=== PATIENT | female | born 1990 | race Caucasian/White ===

== ENCOUNTER 2020-07-19 05:42 | Inpatient (IN) ==
[2020-07-19] MEDS ORDERED: ONDANSETRON 4 MG TAB.RAPDIS PO PRN (05:55)
[2020-07-19] MEDS ORDERED: RINGER'S SOLUTION,LACTATED 1,000 ML IV ONE (05:55)
[2020-07-19] MEDS ORDERED: OXYTOCIN/DEXTROSE 5%-WATER 30 UNITS/500 ML BAG IV ONE ×2 (05:55→12:04)
[2020-07-19] MEDS: DEXTROSE 5%-LACTATED RINGERS 1,000 ML IV PRN ×2 (06:52→11:12)
--- NOTE | 2020-07-19 09:11 | HP ---
Chief Complaint - Chief Complaint Date of Service: 07/19/20 Time of Service: 09:09 Chief Complaint: Induction of labor for post dates History of Present Illness: 30 yo at 40 3/7 weeks admitted for induction of labor due to post dates. 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 Rh positive Rubella immune GBS negative Medical History (Last Reviewed 07/19/20 @ 12:06 by Servando Gutierrez DO) Varicose veins of lower extremity Onset Date: Unknown left Body piercing Onset Date: Unknown Tattoos Onset Date: Unknown Left ulnar fracture Onset Date: ~2000 Surgical History: Surgical History (Last Reviewed 07/19/20 @ 12:06 by Servando Gutierrez DO) History of surgery on arm Onset Date: ~1991 left ulnar-x2 (ages 2 & 6) [place] teeth extracted Onset Date: ~2018 Family History: Family History (Last Reviewed 07/19/20 @ 12:06 by Servando Gutierrez DO) Mother Alive and well Father Colonic disease Social History: (Last Reviewed 07/19/20 @ 05:58 by Lisa Browning RN) Social History: adopted: No mcfp: No Marital status: household members: children, spouse number of children: 3 current occupational status: employed current occupation: [employer] current occupational exposures/hazards: No Highest education level completed: high school graduate Sexually Active: Yes Service: No Tobacco: Smoking Status: Never smoker Alcohol: alcohol intake: current alcohol intake frequency: holiday/special occasion details: No alcohol since + UPT Substance Use: substance use type: does not use Dietary Habits: caffeine: No Exercise: frequency: 3-4 times per week Abbie/Christianity: agree to transfusion: Yes Review Of Systems (GEN) - Review of Systems Generalized/Overall Review: Present: No Symptoms Reported EENTM: Present: No Symptoms Reported Respiratory: Present: No Symptoms Reported Cardiac: Present: No Symptoms Reported Abdominal: Present: No Symptoms Reported Genitourinary: Present: No Symptoms Reported Musculoskeletal: Present: No Symptoms Reported Neurological: Present: No Symptoms Reported Skin: Present: No Symptoms Reported Endocrine: Present: No Symptoms Reported Allergies/Adverse Reactions: Allergies Allergy/AdvReac Type Severity Reaction Status Date / Time No Known Allergies Allergy Verified 07/19/20 05:56 Home Medications: HOME MEDICATIONS prenat.vits,roland,cfw-fyxn-hosvd 1 tab PO DAILY 01/05/20 [Last Taken 07/18/20] docusate sodium 100 mg capsule 100 mg PO DAILY 03/14/20 [Last Taken Unknown] breast pump See Rx Instructions .ROUTE .DELBERT #1 ea 04/26/20 [Last Taken Unk nown] Exam - Exam Vital Signs: Vital Signs - Last Taken Temp 37.0 C 07/19/20 06:07 Pulse 87 07/19/20 06:07 Resp 18 07/19/20 06:07 BP 111/75 07/19/20 06:07 Pulse Ox 96 07/19/20 06:07 Constitutional: Present: Alert, Oriented x3, Cooperative, No distress ENT Exam: Present: hearing grossly normal Neck: Present: supple. Absent: thyromegaly Breasts: Present: Exam deferred Respiratory: Present: lungs clear, no respiratory distress Cardiovascular/Chest: Present: regular rate, rhythm, no edema Abdomen: Present: soft, nontender, other - gravid. Absent: rebound tenderness /Rectal: Present: Other - cervix 5/50/-3 Extremity: Present: no pedal edema, no calf tenderness Skin Exam: Present: normal color, warm/dry, no cyanosis Lymphatic: Present: no adenopathy Neurologic: Present: alert, normal mood/affect, oriented x 3 Appearance: Present: appropriate appearance, appropriate insight Eye contact: Present: cooperative, good eye contact Thoughts: Present: normal thought pattern, normal mood /affect Assessment/Plan - Assessment/Plan (1) Labor established Assessment: Admitted for induction of labor but found to already be in early labor. Augment with pitocin and epidural PRN. Problem: Acute (2) Anemia Problem: Acute Qualifiers: Anemia type: iron deficiency Iron deficiency anemia type: inadequate dietary iron intake Qualified Code(s): D50.8 - Other iron deficiency anemias (3) Psoriasis Problem: Inactive (4) HSV antigen DIF positive Problem: Chronic
--- NOTE | 2020-07-19 09:14 | PN ---
Progess Note - Interim Date: 07/19/20 Time: 07:45 Narrative: 07/19/20 09:11 Patient rating contractions as mild Vital signs stable. Pitocin at 4 mu/min. FHT: 140 baseline, reassuring contractions q 2-3 min Cervix: 5/60/-2, AROM-clear Impression: Intrauterine at 40 3/7 weeks induction of labor for postdates. Plan: Continue present plan
[2020-07-19] MEDS ORDERED: ONDANSETRON HCL/PF 2 MG/ML VIAL IV PRN (10:03)
[2020-07-19] MEDS ORDERED: NALOXONE HCL 1 MG/1 ML SYRG IV PRN (10:03)
[2020-07-19] MEDS ORDERED: BUPIVACAINE HCL/0.9 % NACL/PF 250 ML EP PRN (10:03)
[2020-07-19] MEDS ORDERED: BUPIVACAINE HCL/PF 30 ML VIAL EP SCH (10:15)
--- NOTE | 2020-07-19 10:28 | ANES ---
Anesthesia Pre Procedure Eval Vitals/Labs: Last Vital Signs Temp 37.0 C 07/19/20 06:07 Pulse 87 07/19/20 06:07 Resp 18 07/19/20 06:07 BP 111/75 07/19/20 06:07 Pulse Ox 96 07/19/20 06:07 HOME MEDICATIONS prenat.vits,roland,pau-sbrk-xrgxn 1 tab PO DAILY 01/05/20 [Last Taken 07/18/20] docusate sodium 100 mg capsule 100 mg PO DAILY 03/14/20 [Last Taken Unknown] breast pump See Rx Instructions .ROUTE .MEDSUPPLY #1 ea 04/26/20 [Last Taken Unknown] Allergies/Adverse Reactions: Allergies Allergy/AdvReac Type Severity Reaction Status Date / Time No Known Allergies Allergy Verified 07/19/20 05:56 - Planned Procedure Planned Procedure: Labor Epidural Medication List Reviewed:: Yes Allergies Verified: Yes Medical History (Last Reviewed 07/19/20 @ 10:27 by Pratik Burleson CRNA) Varicose veins of lower extremity Onset Date: Unknown left Body piercing Onset Date: Unknown Tattoos Onset Date: Unknown Left ulnar fracture Onset Date: ~2000 Surgical History (Last Reviewed 07/19/20 @ 10:27 by Pratik Burleson CRNA) History of surgery on arm Onset Date: ~1991 left ulnar-x2 (ages 2 & 6) [place] teeth extracted Onset Date: ~2018 Family History (Last Reviewed 07/19/20 @ 10:27 by Pratik Burleson CRNA) Mother Alive and well Father Colonic disease - Anesthesia Assessment and Plan ASA Class: PS, II Anesthesia Type Plan: Epidural
--- NOTE | 2020-07-19 10:44 | ANES ---
Anesthesia Procedure Note Procedure Note: ANESTHESIA PROCEDURE NOTE Date of Procedure: 07/19/2020. Time of procedure: 1025. Performed by: Pratik Burleson CRNA Food Technician: None. Preprocedure diagnosis: Active labor. Post procedure diagnosis: Same. Procedure: Insertion of labor epidural. Indications: The patient is a 30-year-old female in active labor requesting labor epidural for pain management. Findings: See below. Details of the procedure: The patient was placed in a sitting position. DuraPrep as well as Betadine swabs X3 was applied to the patient's back. Patient was then draped in a sterile fashion. Lidocaine 1% was infiltrated to the skin and subcutaneous tissues at the level of the L3-4 interspace. The epidural space was identified using a 18-gauge Tuohy needle with [id number] technique. Epidural catheter was inserted to a depth of 10 centimeters at skin. Negative test dose was elicited using 3 mL of 1.5% preservative-free lidocaine plus epinephrine 1 200,000. The epidural catheter was then taped and secured in place. A loading dose of 8 mL of 0.25% preservative-free bupivacaine was administered to the epidural catheter after negative aspiration for blood and CSF. EBL: Minimal. Fluids: N/A. Specimen: N/A. Post procedure condition: The patient tolerated the procedure well. No complications were noted. Thank you for this consultation. Pratik Burleson CRNA
--- NOTE | 2020-07-19 10:45 | ANES ---
Post Anesthesia Assessment - Vital Signs Vitals: Last Vital Signs Temp 37.0 C 07/19/20 06:07 Pulse 87 07/19/20 06:07 Resp 18 07/19/20 06:07 BP 111/75 07/19/20 06:07 Pulse Ox 96 07/19/20 06:07 Airway Patency: Normal - Mental Status Level Of Consciousness: Awake - N/V Assessment Nausea/Vomiting Presence: None Dehydration:: No
[2020-07-19] MEDS ORDERED: IBUPROFEN 800 MG TABLET PO PRN (12:04)
[2020-07-19] MEDS ORDERED: BENZOCAINE/MENTHOL 81 SPRAY CAN TP PRN (12:04)
[2020-07-19] MEDS ORDERED: SENNOSIDES 8.6 MG TABLET PO PRN (12:04)
[2020-07-19] MEDS ORDERED: HYDROCORTISONE 30 APPL TUBE TP PRN (12:04)
[2020-07-19] MEDS ORDERED: GLYCERIN/WITCH HAZEL LEAF 40 APPL BOX TP PRN (12:04)
[2020-07-19] MEDS ORDERED: BISACODYL 10 MG SUPP.RECT RC PRN (12:04)
[2020-07-19] MEDS ORDERED: oxyCODONE HCL/ACETAMINOPHEN 1 TAB TABLET PO PRN (12:04)
--- NOTE | 2020-07-19 12:44 | OR ---
Operative Report - Dictated Report Narrative: Spontaneous vaginal delivery of viable female at 1146 on 07/19/2020 with Apgars 9 and 9, weighing 3539 g in OA presentation. spontaneously delivered just prior to walking into the room. Cord clamping delayed approximately 1 minute Placenta delivered complete, intact, with three vessel cord Estimated blood loss: Less than 50 ml Anesthesia: Epidural Lacerations: None History for MU History for MU Definition: * The number of deliveries resulting in a live the patient experienced prior to current hospitalization * The previous delivery of live twins or any live multiple gestation is considered one live event. *If primagravida or nulliparous is documented select zero for the number of previous live births. Live Events: Live Events: 3
[2020-07-19] MEDS: IBUPROFEN 800 MG TABLET PO PRN (16:08)
[2020-07-19] MEDS: DOCUSATE SODIUM 100 MG CAPSULE PO SCH (21:15)
--- NOTE | 2020-07-20 07:15 | PN ---
Subjective - Date and Time Seen Date: 07/20/20 Time: 07:15 Objective - Vitals Vitals: Last Vital Signs Temp 36.8 C 07/20/20 00:40 Pulse 81 07/20/20 00:40 Resp 18 07/20/20 00:40 BP 112/68 07/20/20 00:40 Pulse Ox 95 07/20/20 00:40 Patient denies complaints. Lochia wnl abdomen - soft, nontender Uterus -firm, at umbilicus - 1 no calf tenderness Impression: day #1 - s/p spontaneous vaginal delivery. Plan: Continue routine care Cauti Physician Documentation - Urinary Catheter Management Urethral (Bowers) Date of Insertion: 07/19/20 Time of Insertion: 11:07 Date of Removal: 07/19/20 Time of Removal: 11:45 Assessment/Plan - Problems/Diagnosis (1) Labor established Problem: Acute (2) Anemia Problem: Acute Qualifiers: Anemia type: iron deficiency Iron deficiency anemia type: inadequate dietary iron intake Qualified Code(s): D50.8 - Other iron deficiency anemias
[2020-07-20] MEDS: DOCUSATE SODIUM 100 MG CAPSULE PO SCH ×3 (09:06→20:51)
[2020-07-20] MEDS: PRENATAL VITS96/IRON FUM/FOLIC 1 TAB TABLET PO SCH (09:06)
[2020-07-21] MEDS: IBUPROFEN 800 MG TABLET PO PRN (06:52)
[2020-07-21] MEDS: DOCUSATE SODIUM 100 MG CAPSULE PO SCH ×3 (06:53→09:08)
[2020-07-21] MEDS: PRENATAL VITS96/IRON FUM/FOLIC 1 TAB TABLET PO SCH ×2 (06:53→09:08)
[2020-07-21 07:35] VITALS: BP 115/70
--- NOTE | 2020-07-21 09:15 | PN ---
Subjective - Date and Time Seen Date: 07/21/20 Time: 09:14 Objective - Vitals Vitals: Last Vital Signs Temp 37 C 07/21/20 07:00 Pulse 83 07/21/20 07:00 Resp 16 07/21/20 07:00 BP 115/70 07/21/20 07:00 Pulse Ox 96 07/21/20 07:00 Patient denies complaints. Breast-feeding/bottlefeeding. Lochia wnl abdomen - soft, nontender Uterus -firm, at umbilicus - 2 no calf tenderness Impression: day #2 - s/p spontaneous vaginal delivery. Plan: Routine discharge instructions Cauti Physician Documentation - Urinary Catheter Management Urethral (Bowers) Date of Insertion: 07/19/20 Time of Insertion: 11:07 Date of Removal: 07/19/20 Time of Removal: 11:45 Assessment/Plan - Problems/Diagnosis (1) Labor established Problem: Acute (2) Anemia Problem: Acute Qualifiers: Anemia type: iron deficiency Iron deficiency anemia type: inadequate dietary iron intake Qualified Code(s): D50.8 - Other iron deficiency anemias
== END 2020-07-21 10:00 | disposition home or self-care (01) | DRG 807 ==
LOC: OB 05:42
PROVIDERS: ADMIT Obstetrics & Gynecology; ATTEND Obstetrics & Gynecology